=== PATIENT | male | born 1945 | race Caucasian/White ===

== ENCOUNTER 2017-01-16 12:14 | Emergency (ER) | payer MEDICARE | END 2017-01-16 14:08 | disposition home or self-care (01) | LOC: BURERS 12:14 | DX: T17.228A Food in pharynx causing other injury, initial encounter (principal); I10 Essential (primary) hypertension; J44.9 Chronic obstructive pulmonary disease, unspecified; Z79.899 Other long term (current) drug therapy | CPT/HCPCS: 99283 ==

== ENCOUNTER 2017-10-08 11:16 | Outpatient (CLI) | payer MEDICARE ==
--- NOTE | 2017-10-08 15:52 | RAD ---
LUMBAR SPINE THREE VIEWS: 10/08/17 Mild scoliosis convexed right is present. Degenerative disc disease is present at L4-L5 with prominen t disc space narrowing, osteophytes and a vacuum phenomenon. Minor disc space narrowing is present at L2-L3 and L3-L4. There is some mild anterior wedging of the L1 vertebral body, possibly an old injur y, but it does not appear acute. The SI joints are symmetrical. IMPRESSION: Degenerative changes as noted, particularly ate L4-L5. It would not surprise me if there are some pos terior osteophytes that are problematic here. Cross-sectional imaging such as MRI would be useful if the patient is able. POS: HOME
== END 2017-10-08 11:17 | disposition home or self-care (01) ==
LOC: BURRAD 11:16
PROVIDERS: ATTEND Family Medicine
DX: M54.5 Low back pain (principal); M47.896 Other spondylosis, lumbar region
CPT/HCPCS: 72100

== ENCOUNTER 2018-05-18 06:46 | Emergency (ER) | payer MEDICARE ==
[2018-05-18 07:32] LABS: #Basophils 0.1 thou/uL (0.0-0.2); #Lymphocytes 0.3 thou/uL (1.20-3.40); #Monocytes 0.4 thou/uL (0.11-0.59); #Neutrophils 5.4 thou/uL (1.40-6.50); %Basophils 1.6 % (0.0-1.0); %Eosinophils 0.7 % (0.0-10.0); %Lymphocytes 4.6 % (21.0-51.0); %Neutrophils 86.2 % (42.0-75.0); Hemoglobin 16.8 g/dL (14.0-18.0); Mean Corpuscular HGB CONC 33.7 g/dL (32.0-36.0); Mean Corpuscular Hemoglobin 30.8 pg (27.0-31.0); Mean Corpuscular Volume 91.3 fL (78.0-98.0); Mean Platelet Volume 10.7 fL (7.4-10.4); Platelet Count 165 thou/uL (130-400); RBC Distribution Width 12.2 % (11.5-14.5); Red Blood Cell (RBC) Count 5.45 mill/uL (4.70-6.10); White Blood Cell (WBC) Count 6.3 thou/uL (4.8-10.8)
[2018-05-18] MEDS ORDERED: Acetaminophen 500 MG TAB ONE (07:39)
[2018-05-18 07:40] LABS: Clarity Clear (Clear)
[2018-05-18 07:41] LABS: Bilirubin Negative (Negative); Blood, Urine Negative (Negative); Glucose, Urine (Dipstick) Negative (Negative); Leukocyte Negative (Negative); Nitrite Negative (Negative); Protein, Urine (Dipstick) 30 mg/dL (Neg-Trace); Specific Gravity, Urine 1.015 (1.005-1.030); Urobilinogen 0.2 mg/dL (0.2-1.0); pH, Urine 8.5 (5.0-9.0)
[2018-05-18 07:43] LABS: ALT (SGPT) 11 U/L (8-55); AST (SGOT) 15 U/L (5-34); Albumin 4.4 g/dL (3.4-4.8); Alkaline Phosphatase 76 U/L (40-150); Anion Gap 15 mmol/L (10-20); BUN (Urea Nitrogen) 11 mg/dL (8.4-25.7); Bilirubin, Total 0.7 mg/dL (0.2-1.2); Calc. Creatinine Clearance 0 mL/min (70-130); Calcium 9.5 mg/dL (7.8-10.44); Carbon Dioxide 23 mmol/L (23-31); Chloride 105 mmol/L (98-107); Estimated GFR-MDRD 67; Globulin 2.7 g/dL (2.4-3.5); Glucose 93 mg/dL (83-110); Protein, Total 7.1 g/dL (5.8-8.1); Sodium 139 mmol/L (136-145)
[2018-05-18 07:47] LABS: RBC/HPF 0-3 HPF (0-3); WBC/HPF 0-3 HPF (0-3)
[2018-05-18 07:48] LABS: Bacteria/HPF None Seen HPF (None Seen); Squamous Epithelial 0-3 HPF (0-3)
[2018-05-18] MEDS ORDERED: Oseltamivir 75 MG CAP ONE (07:48)
--- NOTE | 2018-05-18 11:29 | RAD ---
CHEST 2 VIEWS: DATE: 05/18/2018. FINDINGS: No prior films are available for comparison. The heart is normal size. There is no vascular congest ion, edema, or pleural effusion. No lobar pulmonary infiltrate was seen. There is perhaps some slig ht prominence of the interstitial markings, particularly in the lung bases. This is most likely long standing. The mediastinum was unremarkable. IMPRESSION: No acute thoracic findings. POS: HOME
== END 2018-05-18 07:55 | disposition home or self-care (01) ==
LOC: BURERS 06:46
DX: J11.1 Influenza due to unidentified influenza virus with other respiratory manifestations (principal); I10 Essential (primary) hypertension; J44.9 Chronic obstructive pulmonary disease, unspecified; N40.0 Benign prostatic hyperplasia without lower urinary tract symptoms; Z79.899 Other long term (current) drug therapy
CPT/HCPCS: 71046; 80053; 81003; 81015; 83605; 84443; 84484; 85025; 85379; 87040; 87804; 93005; 94760

== ENCOUNTER 2022-07-07 10:04 | Outpatient (CLI) | payer MEDICARE, OTHER ==
[2022-07-07] MEDS ORDERED: Iopamidol 370 76% 100 ML VIAL ONE (11:07)
== END 2022-07-07 10:05 | disposition home or self-care (01) ==
LOC: BURCT 10:04
PROVIDERS: ATTEND Family Medicine
DX: Z01.818 Encounter for other preprocedural examination (principal); G81.91 Hemiplegia, unspecified affecting right dominant side
CPT/HCPCS: 36415; 70470; 82565; Q9967